=== PATIENT | male | born 1995 | race Caucasian/White ===

== ENCOUNTER 2020-12-01 11:14 | Emergency (ER) | payer OTHER ==
[2020-12-01] MEDS ORDERED: DIPH,PERTUS(ACELL)TETVAC-LF 0.5 ML VIAL IM ONE (11:34)
[2020-12-01] MEDS ORDERED: MORPHINE SULFATE 4 MG/ML SYRINGE IV STA (11:34)
[2020-12-01] MEDS ORDERED: SODIUM CHLORIDE 0.9% 1,000 ML IV STA (11:34)
[2020-12-01] MEDS ORDERED: ONDANSETRON 4 MG/2 ML VIAL IVP STA (11:34)
--- NOTE | 2020-12-01 12:19 | XR ---
Right hand HISTORY: Trauma and pain to first digit, laceration between first and second digit 3 views of the right hand There is no radiopaque foreign body. Lucency within the soft tissues is likely due to patient's lacer ation. Bone mineralization, joint spaces and alignment are maintained. IMPRESSION: No fracture or dislocation. No radio opaque foreign body.
[2020-12-01] MEDS ORDERED: MORPHINE SULFATE 4 MG/ML SYRINGE IVP STA (13:45)
[2020-12-01] MEDS ORDERED: LIDOCAINE 1% INJ 10MG/ML (20 ML MDV) SQ ONE (14:06)
--- NOTE | 2020-12-01 15:01 | ED ---
Upper Extremity HPI - General Chief Complaint: Extremity Injury, Upper Stated Complaint: Rt Thumb Laceration Time Seen by Provider: 12/01/20 11:26 Source: patient, RN notes reviewed Mode of arrival: ambulatory Limitations: no limitations - History of Present Illness Initial Comments: Patient is a 25 she'll male that presents to emergency room with a right dorsal hand laceration due to a hardboard grinder. He notes that he was trying to clear some stuff up when he cut his hand. Patient was unsure of his tetanus status. He notes that he does have full sensation of his thumb but not full range of motion due to pain. Patient didn't appear to be pale in color and diaphoretic upon arrival. Patient noted that he does not handle blood well. He was otherwise a healthy 25 she'll male in no apparent distress or pain. He denied any chest pain shortness breath headache nausea vomiting diarrhea constipation fever fatigue chills - Related Data Previous Rx's Medication Instructions Recorded Cephalexin [Keflex] 500 mg PO Q6HR #40 cap 12/01/20 Allergies Allergy/AdvReac Type Severity Reaction Status Date / Time No Known Allergies Allergy Verified 12/01/20 13:44 Review of Systems ROS Statement: Those systems with pertinent positive or pertinent negative responses have been documented in the HPI. ROS Other: All systems not noted in ROS Statement are negative. Past Medical History Past Medical History: No Reported History History of Any Multi-Drug Resistant Organisms: None Reported Past Surgical History: No Surgical Hx Reported Past Psychological History: Anxiety Smoking Status: Current every day smoker Past Alcohol Use History: Occasional Past Drug Use History: None Reported General Exam Limitations: no limitations General appearance: alert, in no apparent distress Head exam: Present: atraumatic, normocephalic, normal inspection Eye exam: Present: normal appearance, PERRL, EOMI. Absent: scleral icterus, conjunctival injection, periorbital swelling ENT exam: Present: normal exam, mucous membranes moist Neck exam: Present: normal inspection Respiratory exam: Present: normal lung sounds bilaterally. Absent: respiratory distress, wheezes, rales, rhonchi, stridor Cardiovascular Exam: Present: regular rate, normal rhythm, normal heart sounds. Absent: systolic murmur, diastolic murmur, rubs, gallop, clicks Right Hand Wrist exam: Present: full ROM (Thumb decreased due to extensor tendon damage), tenderness, laceration (Dorsal aspect proximal of the thumb measuring approximately 8 cm), other (Patient had decreased strength on right thumb extension with visible damage to tendon). Absent: normal inspection, swelling, abrasion Vascular: Present: normal capillary refill. Absent: vascular compromise Neurological exam: Present: alert, oriented X3 Psychiatric exam: Present: normal affect, normal mood Skin exam: Present: warm, dry, intact, normal color. Absent: rash Course Vital Signs 12/01/20 11:15 Temperature 98.7 F Pulse Rate 78 Respiratory 100 H Rate Blood Pressure 129/78 O2 Sat by Pulse 18 L Oximetry Procedures - Laceration Laceration #1 Consent Obtained: verbal consent Indication: laceration Site: hand (Ayad aspect right hand proximal thumb) Size (cm): 8 Description: linear Depth: involves tendon Anesthetic Used: lidocaine 1% Anesthesia Technique: local infiltration Amount (mls): 6 Pre-repair: irrigated extensively Type of Sutures: nylon Size of Sutures: 3-0 Number of Sutures: 6 Technique: simple, interrupted Patient Tolerated Procedure: well, no complications - Orthopedic Splinting/Casting Injury #1 Side: right Upper Extremity Injury Location: wrist Upper Extremity Immobilizer: thumb spica Medical Decision Making - Medical Decision Making 25-year-old male with a right hand laceration due to a hardboard grinder. X-ray of the right hand, tetanus vaccine, 4 mg of morphine, 4 monos Zofran, 1 L normal saline, lidocaine ordered. X-ray negative for any acute fractures dislocations. 4 mg of morphine ordered due to pain. Patient tolerated suturing well. nadeem hawley from orthopedics was consulted and states to washout, superficial closure and splint and then have him follow-up in office with Dr. Lennon Case discussed with Dr. Lynn, patient discharge home. - Radiology Data Radiology results: report reviewed, image reviewed X-ray right hand: No fracture dislocation. No radiopaque foreign body. Disposition Clinical Impression: Laceration, Laceration of right thumb with tendon involvement Disposition: HOME SELF-CARE Condition: Stable Instructions (If sedation given, give patient instructions): Laceration (ED), Care For Your Stitches (ED) Additional Instructions: Please return to the Emergency Department if symptoms worsen or any other concerns. Follow-up with hand specialist early next week. Take Tylenol Motrin as needed for pain. Keep area clean and dry, keep in splint. Is patient prescribed a controlled substance at d/c from ED?: No Referrals: None,Stated [Primary Care Provider] - 1-2 days Reddy Lennon DO [Doctor of Osteopathic Medicine] - 1-2 days Time of Disposition: 15:01
[2020-12-01 15:19] VITALS: BP 136/84; PULSE 112; RESP 18; TEMP 98.1
== END 2020-12-01 15:18 | disposition home or self-care (01) ==
LOC: EC 11:14
DX: S61.011A Laceration without foreign body of right thumb without damage to nail, initial encounter (principal); F17.200 Nicotine dependence, unspecified, uncomplicated; Z23 Encounter for immunization; W26.8XXA Contact with other sharp object(s), not elsewhere classified, initial encounter
CPT/HCPCS: 12004; 90471; 90715; 96361; 96365; 96375; 96376; 99283